=== PATIENT | male | born 1940 | race Caucasian/White ===

== ENCOUNTER → 2016-11-24 | Outpatient (CLI) | payer OTHER ==
[~2016-11-24] MED LIST: ASPCH81X PO; ATEN50TA8 PO; ATOR10TA88 PO; PRT/20 PO; TAMS0.4C59 PO
[2016-11-24 13:01] VITALS: BP 110/63; PULSE 65; TEMP 36.5; O2SAT 95
--- NOTE | 2016-11-24 17:17 | Radiation Oncology Follow-Up ---
Radiation Oncology Follow-Up Date of Visit Nov 24, 2016. Reason For Visit Annual follow-up Radiation Completion Date finished 02-17-2013 , using IMRT and IGRT Diagnosis (1) Prostate cancer Status: Resolved Stage: ll Permanent Comment: DIAGNOSIS: Prostate, adenocarcinoma, brendan 3 + 3, PSA 8.98 , cT1c, Group I TREATMENT: Radiation therapy - IMRT/IGRT - 7800 cGy - completed 02/17/2013 Last Edited By: Mallory Goddard on Nov 15, 2014 13:53 Interim History He has been doing well over this past year. He denies any change in his urinary status. His AUA score was 5. He completed and expanded prostate cancer index composite for clinical practice and gave a score of 0 of 12 and urinary incontinence symptoms. He gave a score of 0 of 12 and urinary irritation symptoms. He gave a score of 0 of 12 and bowel symptoms. He gave a score of one of 12 and sexual symptoms. He gave a score of 0 of 12 and hormonal vitality symptoms. His total was 1 of 60. He had a PSA 05/04/2016. This was performed at [facility]. This was found to be 1.12. He does not require any medication to help with urination. He had been on Flomax. At his last visit he had discussed discontinuation of the medication with Dr. Gutierrez. He did make the decision to stop taking the medication. This was 4 months ago. He feels that his urinary status did not change with stopping the medication. Allergies Coded Allergies: BEE STING (Unverified Allergy, Unknown, PER H & P, 11/09/12) Nitroglycerin (Unverified Allergy, Unknown, PER H & P, 11/09/12) Venlafaxine (Unverified Allergy, Unknown, PER H&P, 11/09/12) Home Medications Scheduled Aspirin (Aspirin Chewable), 81 MG PO QPM Atenolol (Tenormin), 12.5 MG PO DAILY Atorvastatin (Lipitor), 10 MG PO QPM Pantoprazole (Protonix), 20 MG PO DAILY Review of Systems Gastrointestinal: Symptoms: WNL Oral: Symptoms: No Problems Respiratory: Symptoms: WNL Urinary: Symptoms: Nocturia Comments: nocturia 2 - 3 , occ urgency Skin: Symptoms: No Problems Physical Exam Vital Signs Date Time Temp Pulse Resp B/P (MAP) Pulse Ox O2 Delivery O2 Flow Rate FiO2 8/22/17 13:01 36.5 65 18 110/63 95 Pain: Side: Bilateral Patient Pain Scale: 0 - 10 Initial Pain Intensity: 0.0 Fatigue: None General Appearance: no apparent distress Eyes: normal inspection, EOMI ENT: normal ENT inspection, hearing grossly normal Respiratory/Chest: lungs clear, no respiratory distress, no accessory muscle use Cardiovascular: regular rate, rhythm, no gallop, no murmur Abdomen: non tender, soft, no organomegaly Anal / Rectum: Normal sphincter tone. The prostate is smooth without nodules. No rectal masses no rectal bleeding. Neurologic/Psychiatric: no motor/sensory deficits, alert, normal mood/affect Skin: warm/dry Laboratory Studies Test 11/24/16 13:23 Prostate Specific Antigen 0.898 ng/ml (0.000-4.000) Assessment & Plan Plan: The PSA was drawn today prior to examination. He'll be notified as to results. Continue regular follow-up with Dr. Gutierrez and Dr. Pena. We asked him to return to our office in 1 year. He may call if he has any questions or concerns in the interim. Total Time In Follow-Up I spent 20 minutes speaking to the patient and performing examination. I spent 15 minutes reviewing information and completing this note. Copy To Genaro Pena M.D.; Rodri Gutierrez MD
== END | disposition home or self-care (01) ==
LOC: C.ONC 12:52
PROVIDERS: ATTEND Physician Assistant Medical
DX: Z08 Encounter for follow-up examination after completed treatment for malignant neoplasm (principal); Z92.3 Personal history of irradiation; Z85.46 Personal history of malignant neoplasm of prostate

== ENCOUNTER → 2017-11-25 | Outpatient (CLI) | payer OTHER ==
[~2017-11-25] MED LIST changes: +ATOR10TA82 PO; -ATOR10TA88 PO; +METO25TA4 PO; -TAMS0.4C59 PO
[2017-11-25 12:55] VITALS: BP 128/69; PULSE 63; TEMP 36.3; O2SAT 93
--- NOTE | 2017-11-25 15:06 | Radiation Oncology Follow-Up ---
Radiation Oncology Follow-Up Date of Visit Nov 25, 2017. Reason For Visit Annual follow-up Radiation Completion Date finished 02-17-2013 using IMRT / IGRT Diagnosis (1) Prostate cancer Status: Resolved Permanent Comment: DIAGNOSIS: Prostate, adenocarcinoma, brendan 3 + 3, PSA 8.98 , cT1c, Group I TREATMENT: Radiation therapy - IMRT/IGRT - 7800 cGy - completed 02/17/2013 Last Edited By: Mallory Goddard on Nov 15, 2014 13:53 Interim History He has been doing well over this past year. He denies any change of urination. Today he gave an AUA score of 4. He completed and expanded prostate cancer index composite for clinical practice and gave a score of 0 of 12 and urinary incontinence symptoms. He gave a score of 0 of 12 and urinary irritation symptoms. He gave a score of 0 12 and bowel symptoms. He gave a score of 0 of 12 and sexual symptoms. He gave a score of 0 of 12 and hormonal vitality symptoms. His total was 0 of 60. He does not take any medication to help with urination. His last PSA was May 10, 2018. And that was 1.00. Allergies Coded Allergies: BEE STING (Unverified Allergy, Unknown, PER H & P, 11/09/12) Nitroglycerin (Unverified Allergy, Unknown, PER H & P, 11/09/12) Venlafaxine (Unverified Allergy, Unknown, PER H&P, 11/09/12) Home Medications Scheduled Aspirin (Aspirin Chewable), 81 MG PO QPM Atorvastatin (Lipitor), 10 MG PO QPM Metoprolol Succinate (Toprol Xl), 1 TAB PO DAILY Pantoprazole (Protonix), 20 MG PO DAILY Review of Systems Gastrointestinal: Symptoms: WNL Oral: Symptoms: No Problems Respiratory: Symptoms: WNL Urinary: Symptoms: Nocturia Comments: nocturia 2 - 3 Skin: Symptoms: No Problems Physical Exam Vital Signs Date Time Temp Pulse Resp B/P (MAP) Pulse Ox O2 Delivery O2 Flow Rate FiO2 11/25/17 12:55 36.3 63 16 128/69 93 Fatigue: None General Appearance: no apparent distress Eyes: normal inspection, EOMI ENT: normal ENT inspection, hearing grossly normal Neck: no adenopathy, thyroid normal Respiratory/Chest: lungs clear, no respiratory distress, no accessory muscle use Cardiovascular: regular rate, rhythm, no gallop, no murmur Abdomen: non tender, soft, no organomegaly Anal / Rectum: Normal sphincter tone. No rectal masses and no rectal bleeding. Extremities: no pedal edema Neurologic/Psychiatric: no motor/sensory deficits, alert, normal mood/affect Skin: warm/dry Pain Management Patient Reports Pain: No Side: Bilateral Patient Preferred Pain Scale: 0 - 10 Initial Pain Intensity: 0.0 Pain Management Plan He denies pain therefore requires no pain management. Laboratory Laboratory Results: were reviewed Laboratory Comments: Test 11/25/17 13:26 Prostate Specific Antigen 1.010 ng/ml (0.000-4.000) Pathology Pathology Results: not applicable Imaging Imaging Studies: not applicable Assessment & Plan Plan: A PSA was drawn today prior to examination. He will be notified as to results. If the PSA continues to be stable will have him follow with urology alone. He is therefore not given a follow-up appointment. The PSA did come back at stable. This was 1.010. He will now follow with the primary care physician and urology. Total Time In Follow-Up I spent 20 minutes speaking to the patient in performing examination. I spent 15 minutes reviewing information and completing this note. Copy To Genaro Pena M.D.; Rodri Gutierrez MD
== END | disposition home or self-care (01) ==
LOC: C.ONC 12:47
PROVIDERS: ATTEND Physician Assistant Medical
DX: Z08 Encounter for follow-up examination after completed treatment for malignant neoplasm (principal); Z92.3 Personal history of irradiation; Z85.46 Personal history of malignant neoplasm of prostate